=== PATIENT | male | born 1965 | race African-American/Black ===

== ENCOUNTER 2016-08-23 09:05 | Emergency (ER) | payer BC ==
[~2016-08-23] VITALS: Ht 180.3 cm; Wt 100.0 kg
[2016-08-23] MEDS ORDERED: TORADOL10 MG PO (11:29)
[2016-08-23] MEDS ORDERED: FLEXERIL10 MG PO (11:29)
[2016-08-23 11:44] VITALS: BP 115/72
== END 2016-08-23 11:37 | disposition home or self-care (01) ==
LOC: EME 09:05
DX: M54.5 Low back pain (principal); G89.29 Other chronic pain
CPT/HCPCS: 99281; 99284; J1885

== ENCOUNTER 2017-07-13 07:01 | Emergency (ER) | payer BC ==
[~2017-07-13] VITALS: Ht 175.3 cm; Wt 100.0 kg
[~2017-07-13 07:01] MED LIST: FLEXERIL10 MG PO; TORADOL10 MG PO
[2017-07-13] MEDS ORDERED: MEDROL DOSEPAK4 MG PO (11:07)
[2017-07-13] MEDS ORDERED: PERCOCET 5/31 TABLET PO (11:07)
[2017-07-13] MEDS ORDERED: VALIUM2 MG PO (11:07)
[2017-07-13] MEDS ORDERED: NAPROSYN500 MG PO (11:07)
[2017-07-13 11:18] VITALS: BP 109/61
== END 2017-07-13 11:20 | disposition home or self-care (01) ==
LOC: EME 07:01
DX: M54.41 Lumbago with sciatica, right side (principal)
CPT/HCPCS: 72148; J1100; J1885; J2270